=== PATIENT | male | born 1970 | race Two or more races ===

== ENCOUNTER 2022-11-20 13:43 | Emergency (ER) | payer MEDICAID, OTHER ==
[~2022-11-20] VITALS: Ht 172.7 cm; Wt 68.2 kg
[2022-11-20 14:26] VITALS: BP 129/68
[2022-11-20] MEDS ORDERED: GABA600T PO (14:54)
[2022-11-20] MEDS ORDERED: CEPH-510 PO (14:54)
[2022-11-20] MEDS ORDERED: BACDST PO (14:54)
== END 2022-11-20 15:11 | disposition home or self-care (01) ==
LOC: ER 13:43
DX: L01.00 Impetigo, unspecified (principal); A64 Unspecified sexually transmitted disease; Z76.0 Encounter for issue of repeat prescription; Z88.2 Allergy status to sulfonamides
CPT/HCPCS: 86703